=== PATIENT | male | born 1995 | race Two or more races ===

== ENCOUNTER → 2020-12-16 14:29 | Emergency (ER) | payer SELFPAY ==
[~2020-12-16] VITALS: Ht 180.3 cm; Wt 77.1 kg
[~2020-12-16 14:29] MED LIST: EPINEPHrine HCL 1 MG/10 ML SYRG IV ONE; NOREPINEPHRINE 8 MG/250ML KIT 250 ML IV ONE; NOREPINEPHRINE 8 MG/250ML KIT 250 ML IV SCH; SODIUM BICARBONATE 8.4% INJ 50ML SYRINGE IV ONE; SODIUM CHLORIDE 0.9% 1,000 ML IV ONE
[2020-12-16 14:41] VITALS: BP 61/20
== END | disposition home or self-care (01) ==
LOC: ER 14:29 → EDBD 14:29
DX: I46.9 Cardiac arrest, cause unspecified (principal); J96.21 Acute and chronic respiratory failure with hypoxia
CPT/HCPCS: 31500; 36556; 71045; 92950; 99291; J0171